=== PATIENT | male | born 1985 | race Two or more races ===

== ENCOUNTER 2020-03-17 12:06 | Emergency (ER) | payer OTHER ==
[~2020-03-17] VITALS: Ht 175.3 cm; Wt 83.5 kg
[2020-03-17] MEDS ORDERED: PROZAC20 MG PO (12:26)
[2020-03-17] MEDS ORDERED: LITHATE20 MG PO (12:27)
[2020-03-17] MEDS ORDERED: VITAMIN C WIT1000 MG PO (15:13)
[2020-03-17] MEDS ORDERED: VITAMIN D3-ALO1 EACH PO (15:13)
[2020-03-17] MEDS ORDERED: ACETAMINOPHEN650 M2 PO (15:13)
== END 2020-03-17 16:02 | disposition home or self-care (01) ==
LOC: ER 12:06
DX: B34.9 Viral infection, unspecified (principal); A90 Dengue fever [classical dengue]; K52.9 Noninfective gastroenteritis and colitis, unspecified; Z03.818 Encounter for observation for suspected exposure to other biological agents ruled out

== ENCOUNTER 2020-11-20 14:36 | Outpatient (CLI) | payer OTHER ==
[~2020-11-20 14:36] MED LIST: ACETAMINOPHEN650 M2 PO; LITHATE20 MG PO; PROZAC20 MG PO; VITAMIN C WIT1000 MG PO; VITAMIN D3-ALO1 EACH PO
== END 2020-11-20 15:01 | disposition home or self-care (01) ==
LOC: RAD 14:36
PROVIDERS: ATTEND Internal Medicine
DX: J85.1 Abscess of lung with pneumonia (principal)

== ENCOUNTER 2020-12-29 20:55 | Emergency (ER) | payer OTHER ==
[~2020-12-29] VITALS: Ht 190.5 cm; Wt 73.0 kg
[2020-12-29] MEDS ORDERED: EFFEXOR XR37.5 MG (21:17)
[2020-12-29] MEDS ORDERED: AMBIEN10 MG (21:17)
[2020-12-30] MEDS ORDERED: PEPCID AC20 MG PO (06:52)
[2020-12-30] MEDS ORDERED: INTESTINEX680 M1 PO (06:52)
== END 2020-12-30 06:56 | disposition home or self-care (01) ==
LOC: ER 20:55
DX: R11.10 Vomiting, unspecified (principal); R19.7 Diarrhea, unspecified; F41.8 Other specified anxiety disorders